=== PATIENT | female | born 2000 | race Caucasian/White ===

== ENCOUNTER → 2018-03-07 10:52 | Outpatient (CLI) | payer BC, SELFPAY ==
[2018-03-07 13:57] LABS: Thyroid Stimulating Hormone 1.08 uIU/ml (0.516-4.13)
[2018-03-07 14:16] LABS: Erythrocyte Sedimentation Rate 22 mm/hr (0-20)
[2018-03-09 06:52] LABS: Epstein-Barr Virus Early Ag Ab <9.0 U/mL (0.0-8.9)
== END ==
PROVIDERS: Visit Provider Internal Medicine Adolescent Medicine
DX: R53.83 Other fatigue (principal)
CPT/HCPCS: 36415; 84443; 85651; 86663

== ENCOUNTER 2022-04-05 14:25 | Emergency (ER) | payer BC, SELFPAY ==
--- NOTE | 2022-04-05 16:03 | EXP.UTC ---
Discharge Plan Disposition Patient Disposition: Home, Self-Care Condition: Good Prescriptions Prescriptions: New ondansetron 4 mg Tablet,Disintegrating 4 mg PO Q8H PRN (Reason: Nausea) Qty: 20 0RF dicyclomine 10 mg capsule 10 mg PO TID Qty: 20 0RF Referrals Follow up/Referrals: Provider,Referral, [Primary Care Provider] - See instructions Activity Restrictions/Add. Instructions Additional Instructions/Restrictions: Drink plenty of fluids. Take tylenol or ibuprofen for pain or fever. Take the medications as directed. Follow up with your regular doctor. GO TO THE ER FOR ANY WORSENING SYMPTOMS Return a stool sample as soon as you collect it so it can be analyzed for different infections. Clinical Impressions Clinical Impression: COVID-19, Diarrhea Instructions Patient Instructions: Diarrhea, Coronavirus Disease 2019, Preventing the Spread of Coronavirus Discharge Instructions Discharge ED Provider: To [facility] General Stated complaint: abdominal pain, diarrhea Time Seen by Provider: 04/05/22 16:03 History of Present Illness Provider Complaint: She has had diarrhea for the past 6 days. She was out of the country on her [place] in the [place] when her symptoms began. She was having abdominal cramping also, but that symptom has mostly resolved. But she continues to have diarrhea frequently. After her diarrhea symptom began she did start having upper respiratory congestion and a sore throat. She tested positive for covid-19 2 days ago while [place] She flew home today and came here to be checked. She denies shortness of breath and she states that her congestion and sore throat is getting better. She has not had a fever or chills at all, but she has had body aches. She denies vomiting but she has felt nauseated at times. She denies any blood in her stools or any dark tarry stools. Related Data Previous Rx's Medication Instructions Recorded dicyclomine 10 mg capsule 10 mg PO TID #20 caps 04/05/22 ondansetron 4 mg disintegrating 4 mg PO Q8H PRN Nausea #20 tabs 04/05/22 tablet Allergies Allergy/AdvReac Type Severity Reaction Status Date / Time No Known Allergies Allergy Verified 04/05/22 16:17 [facility] Social History Smoking Status: Never smoker alcohol intake: never current occupational status: employed Travel in the last 8 weeks: Outside the [facility] ROS Obtained: Yes All systems reviewed & no additional complaints except as documented Constitutional Constitutional: Reports chills and Reports fever(s) Eyes Eyes: Denies eye discharge ENT Ears, Nose, Mouth, and Throat: Reports as per HPI Cardiovascular Cardiovascular: Denies chest pain Respiratory Respiratory: Denies chest congestion and Reports cough Gastrointestinal Gastrointestingal: Reports cramping, diarrhea, excessive flatus and nausea; Denies abdominal pain, constipation, fecal incontinence, heartburn, hematemesis, hematochezia, melena or vomiting Musculoskeletal Musculoskeletal: Denies arthralgias Integumentary/Breasts Skin/Breast: Denies rash Neurologic Neurologic: Denies paresthesias Physical Exam General General appearance: alert and in no apparent distress Head Head exam: atraumatic, normocephalic and normal inspection Eye Eye exam: Present normal appearance, PERRL and EOMI ENT ENT exam: Present normal exam, normal oropharynx, mucous membranes moist, TM's normal bilaterally and normal external ear exam Neck Neck exam: Present normal inspection, full ROM and trachea midline; Absent meningismus or lymphadenopathy Chest Chest inspection: Present normal inspection and symmetric chest wall rise; Absent tenderness Respiratory Respiratory exam: Present normal lung sounds bilaterally; Absent respiratory distress Cardiovascular Cardiovascular exam: Present regular rate and normal rhythm; Absent JVD Abdomi
[2022-04-05 16:12] VITALS: BP 117/74; PULSE 112; RESP 17; TEMP 37.5; O2SAT 98; BMI 25.4
[2022-04-05 18:02] VITALS: BP 155/98; PULSE 89; RESP 16; TEMP 36.9
--- NOTE | 2022-04-08 14:27 | PC.NURSE ---
Karolina PARSON APRN SPOKE WITH PHARMACY REGARDING MEDICATION FOR PATIENT FOR DIARRHEA PANEL RESULTS. MEDICATION SENT TO PHARMACY, PATIENT AWARE.
== END 2022-04-05 18:03 | disposition home or self-care (01) ==
PROVIDERS: Emergency Provider Nurse Practitioner Family
DX: U07.1 COVID-19 (principal); R19.7 Diarrhea, unspecified
CPT/HCPCS: 96360; 99213; G0463

== ENCOUNTER → 2022-04-06 11:50 | Outpatient (CLI) | payer BC, SELFPAY ==
[2022-04-06 11:57] LABS: Adenovirus F 40/41, stool Not Detected (NotDetected); Astrovirus Not Detected (NotDetected); Campylobacter Not Detected (NotDetected); Clostridium Difficile A/B, PCR Not Detected (NotDetected); Cryptosporidium Not Detected (NotDetected); Cyclospora Cayetanesis Not Detected (NotDetected); Entamoeba histolytica Not Detected (NotDetected); Giardia lamblia Not Detected (NotDetected); Norovirus Not Detected (NotDetected); Plesimonas Shigalloides, PCR Not Detected (NotDetected); Rotavirus A Not Detected (NotDetected); Salmonella, PCR Not Detected (NotDetected); Sapovirus Not Detected (NotDetected); Shiga-like toxin E coli Not Detected (NotDetected); Vibrio Cholerae Not Detected (NotDetected); Vibrio, PCR Not Detected (NotDetected); Yersinia Entercolitica, PCR Not Detected (NotDetected)
[2022-04-07 08:20] LABS: Enteroaggregative E coli Detected (NotDetected); Enteropathogenic E coli Detected (NotDetected)
[2022-04-07 08:21] LABS: Enterotoxigenic E coli Detected (NotDetected)
[2022-04-07 08:23] LABS: Shigella Enterovasive E coli Detected (NotDetected)
== END ==
LOC: LAB.CARL 11:54
PROVIDERS: Visit Provider Nurse Practitioner Family
DX: R19.7 Diarrhea, unspecified (principal); A04.1 Enterotoxigenic Escherichia coli infection; A04.4 Other intestinal Escherichia coli infections; A03.0 Shigellosis due to Shigella dysenteriae
CPT/HCPCS: 87507